=== PATIENT | male | born 1965 ===

== ENCOUNTER 2016-09-03 22:53 | Emergency (ER) | payer OTHER ==
[2016-09-04] MEDS ORDERED: HYDROCODONE/ACETAMINOPHEN 5/325MG TABLET ONE (01:10)
[2016-09-04] MEDS ORDERED: IBUPROFEN 800 MG TABLET ONE (01:10)
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
== END 2016-09-04 02:12 | disposition home or self-care (01) ==
LOC: ED 22:53
DX: S16.1XXA Strain of muscle, fascia and tendon at neck level, initial encounter (principal); S20.219A Contusion of unspecified front wall of thorax, initial encounter; V53.5XXA Driver of pick-up truck or van injured in collision with car, pick-up truck or van in traffic accident, initial encounter; Y92.410 Unspecified street and highway as the place of occurrence of the external cause
CPT/HCPCS: 72040; 71020; 99283 ×2; A9270